=== PATIENT | female | born 1990 | race African-American/Black ===

== ENCOUNTER 2021-01-08 21:20 | Emergency (ER) | payer MEDICAID, OTHER ==
[~2021-01-08] VITALS: Ht 157.5 cm; Wt 62.0 kg
[2021-01-08 21:26] VITALS: BP 123/76
== END 2021-01-08 23:17 | disposition home or self-care (01) ==
LOC: ER 21:20
DX: R05.9 Cough, unspecified (principal); F12.10 Cannabis abuse, uncomplicated
CPT/HCPCS: 99281